=== PATIENT | male | born 1940 | race Caucasian/White ===

== ENCOUNTER 2016-09-19 08:55 | Day surgery (SDC) | payer OTHER ==
[~2016-09-19] VITALS: Ht 172.7 cm; Wt 98.9 kg
[~2016-09-19 08:55] MED LIST: ACTOS45 MG PO; ASPIRIN325 MG PO; CIPROFLOXA250 MG/5 M PO; CO Q-10100 MG PO; DAILY VALUE1 EACH PO; ELIQUIS5 MG PO; FUROSEMIDE40 MG PO; JANUVIA25 M1 PO; L-ARGININE500 MG PO; LIPITOR40 MG PO; LISINOPRIL10 MG PO; LISINOPRIL40 MG PO; MULTIVITAMIN1 EAC2 PO; PLAVIX75 MG PO; RANEXA500 MG PO
[2016-09-19 09:31] LABS: POINT-OF-CARE METER ID UU13113696; POINT-OF-CARE USER ID HMLCJM07
[2016-09-19 10:29] LABS: POINT-OF-CARE METER ID UU13113819
== END 2016-09-19 11:35 | disposition home or self-care (01) ==
LOC: CATH 08:55
PROVIDERS: Internal Medicine Cardiovascular Disease
PROC: 5A2204Z Restoration of Cardiac Rhythm, Single (ICD-10-PCS; principal; 2016-09-19)
DX: I48.92 Unspecified atrial flutter (principal); I25.10 Atherosclerotic heart disease of native coronary artery without angina pectoris; I11.0 Hypertensive heart disease with heart failure; I50.9 Heart failure, unspecified; E78.5 Hyperlipidemia, unspecified; E11.9 Type 2 diabetes mellitus without complications; Z98.61 Coronary angioplasty status; Z95.5 Presence of coronary angioplasty implant and graft; Z79.82 Long term (current) use of aspirin; Z87.891 Personal history of nicotine dependence; Z85.828 Personal history of other malignant neoplasm of skin
CPT/HCPCS: 82948; 93005

== ENCOUNTER 2016-09-21 12:31 | Inpatient (IN) | payer OTHER ==
[~2016-09-21] VITALS: Ht 172.7 cm; Wt 97.2 kg
[2016-09-21] MEDS ORDERED: LO-DOSE ASPIRIN81 M2 PO (13:44)
[2016-09-21 13:57] LABS: HEMATOCRIT 30.6 % (38.0-50.0); MCH 31.9 PG (29.0-34.0); MCV 96.5 FL (86-99); MEAN PLAT.VOLUME 9.7 uM^3 (9.0-12.4); NRBC (%) 0.4 /100 WBC (0-0); PLATELET COUNT 175 K/uL (156-360); RBC DIS.WIDTH-SD 50.8 % (39-53); RED BLOOD COUNT 3.17 M/uL (4.00-5.50); WHITE BLOOD COUNT 9.1 K/uL (4.1-10.2)
[2016-09-21 14:08] LABS: INTER. NORMALIZED RATIO 1.2; PROTHROMBIN TIME 12.7 (9.2-11.2); PTT 30.1 (25-32)
[2016-09-21 14:09] LABS: CHLORIDE 105 mEq/L (99-109); POTASSIUM 4.1 mEq/L (3.7-5.4); SODIUM 140 mEq/L (136-147)
[2016-09-21 14:11] LABS: GLUCOSE 126 mg/dL (70-99)
[2016-09-21 14:12] LABS: ANION GAP 13 MEQ/L (2-14)
[2016-09-21 14:15] LABS: GFR ESTIMATE (CALCULATED) 45 mL/min/
[2016-09-21 14:16] LABS: UREA NITROGEN (BUN) 35 mg/dL (9-23)
[2016-09-21 19:57] VITALS: BP 136/73
[2016-09-21 21:08] LABS: HEMATOCRIT 29.9 % (38.0-50.0); MCH 31.5 PG (29.0-34.0); MCHC 32.4 G/DL (30.0-36.0); MCV 97.1 FL (86-99); NRBC (%) 0.5 /100 WBC (0-0); PLATELET COUNT 186 K/uL (156-360); RBC DIS.WIDTH-CV 15.1 % (11.8-14.6); RBC DIS.WIDTH-SD 50.8 % (39-53); RED BLOOD COUNT 3.08 M/uL (4.00-5.50); WHITE BLOOD COUNT 10.1 K/uL (4.1-10.2)
[2016-09-21 21:14] LABS: POINT-OF-CARE METER ID UU13113725
[2016-09-22] VITALS (9 sets, daily range): BP systolic 101–171; BP diastolic 54–76
[2016-09-22 06:25] LABS: POINT-OF-CARE METER ID UU13113725
[2016-09-22 08:06] LABS: MCH 31.6 PG (29.0-34.0); MCHC 31.7 G/DL (30.0-36.0); MCV 99.7 FL (86-99); MEAN PLAT.VOLUME 9.9 uM^3 (9.0-12.4); NRBC (%) 0.3 /100 WBC (0-0); PLATELET COUNT 207 K/uL (156-360); RBC DIS.WIDTH-CV 15.2 % (11.8-14.6); RBC DIS.WIDTH-SD 53.1 % (39-53); RED BLOOD COUNT 3.01 M/uL (4.00-5.50); WHITE BLOOD COUNT 9.2 K/uL (4.1-10.2)
[2016-09-22 18:26] LABS: HEMATOCRIT 23.1 % (38.0-50.0); MCV 97.5 FL (86-99)
[2016-09-23] VITALS (14 sets, daily range): BP systolic 105–138; BP diastolic 55–72
[2016-09-23 03:13] LABS: HEMATOCRIT 24.7 % (38.0-50.0); MCV 96.1 FL (86-99)
[2016-09-23 03:27] LABS: CHLORIDE 109 mEq/L (99-109); POTASSIUM 3.7 mEq/L (3.7-5.4); SODIUM 139 mEq/L (136-147)
[2016-09-23 03:30] LABS: GLUCOSE 96 mg/dL (70-99)
[2016-09-23 03:31] LABS: ANION GAP 7 MEQ/L (2-14)
[2016-09-23 03:32] LABS: TOTAL BILIRUBIN 1.6 mg/dL (0.0-1.0)
[2016-09-23 03:33] LABS: ALKALINE PHOSPHATASE 62 IU/L (3-129); GFR ESTIMATE (CALCULATED) > 59 mL/min/
[2016-09-23 03:34] LABS: UREA NITROGEN (BUN) 18 mg/dL (9-23)
[2016-09-23 12:28] LABS: HEMATOCRIT 25.8 % (38.0-50.0); MCV 96.3 FL (86-99)
[2016-09-23 18:32] LABS: HEMATOCRIT 33.4 % (38.0-50.0); MCV 94.9 FL (86-99)
[2016-09-24 00:07] VITALS: BP 114/56
[2016-09-24 04:48] VITALS: BP 114/62
[2016-09-24 07:16] VITALS: BP 100/57
[2016-09-24 07:23] LABS: HEMATOCRIT 28.2 % (38.0-50.0); MCH 31.2 PG (29.0-34.0); MCHC 33.3 G/DL (30.0-36.0); MCV 93.7 FL (86-99); NRBC (%) 0.3 /100 WBC (0-0); RBC DIS.WIDTH-CV 15.9 % (11.8-14.6); RBC DIS.WIDTH-SD 52.2 % (39-53); RED BLOOD COUNT 3.01 M/uL (4.00-5.50)
[2016-09-24 07:29] LABS: WHITE BLOOD COUNT 6.2 K/uL (4.1-10.2)
[2016-09-24 08:45] LABS: EOSINOPHIL (%) 3.4 % (0-5); EOSINOPHIL COUNT 0.2 K/uL (0-0.3); IMMATURE GRANULOCYTE (%) 0.6 % (0.0-0.7); INSTRUMENT ABS NEUTROPHIL CT 4.9 K/uL; LYMPHOCYTE COUNT 0.5 K/uL (1.0-2.8); MONOCYTE (%) 8.1 % (3-12); MONOCYTE COUNT 0.5 K/uL (0-0.8); NEUTROPHIL (%) 79.1 % (45-76); NEUTROPHIL COUNT 4.9 K/uL (1.8-6.4)
[2016-09-24 08:58] LABS: PLATELET COUNT 130 K/uL (156-360)
== END 2016-09-24 10:42 | disposition home or self-care (01) | DRG 378 ==
LOC: EME 12:31 → 5EAST 13:15 → EDOF 13:15 → 5EAST 19:27
PROVIDERS: Emergency Medicine; Family Medicine; Specialist
DX: K55.21 Angiodysplasia of colon with hemorrhage (principal); K29.60 Other gastritis without bleeding; D12.3 Benign neoplasm of transverse colon; K57.30 Diverticulosis of large intestine without perforation or abscess without bleeding; I48.91 Unspecified atrial fibrillation; I48.92 Unspecified atrial flutter; D50.0 Iron deficiency anemia secondary to blood loss (chronic); I25.10 Atherosclerotic heart disease of native coronary artery without angina pectoris; I10 Essential (primary) hypertension; E78.5 Hyperlipidemia, unspecified; I44.1 Atrioventricular block, second degree; E11.65 Type 2 diabetes mellitus with hyperglycemia; M10.9 Gout, unspecified; M16.0 Bilateral primary osteoarthritis of hip; R33.9 Retention of urine, unspecified; E66.9 Obesity, unspecified; Z68.32 Body mass index [BMI] 32.0-32.9, adult; Z79.01 Long term (current) use of anticoagulants; Z95.5 Presence of coronary angioplasty implant and graft; Z90.5 Acquired absence of kidney; Z79.02 Long term (current) use of antithrombotics/antiplatelets; Z79.82 Long term (current) use of aspirin; Z79.84 Long term (current) use of oral hypoglycemic drugs; Z87.891 Personal history of nicotine dependence
CPT/HCPCS: 36415; 80048; 80053; 82948; 85014; 85018; 85025; 85027; 85610; 85730; 86900; 86901; 86920; 93005; 99281; 99285; C9113; J1940; J7030; P9016; P9040

== ENCOUNTER → 2016-10-19 | Outpatient (CLI) | payer OTHER ==
[~2016-10-19] MED LIST changes: +LO-DOSE ASPIRIN81 M2 PO
[2016-10-19 15:06] LABS: INTER. NORMALIZED RATIO 1.1; PROTHROMBIN TIME 11.5 (9.2-11.2); PTT 27.1 (25-32)
[2016-10-19 15:09] LABS: HEMATOCRIT 39.3 % (38.0-50.0); MCH 29.5 PG (29.0-34.0); MCHC 31.6 G/DL (30.0-36.0); MCV 93.3 FL (86-99); MEAN PLAT.VOLUME 9.9 uM^3 (9.0-12.4); PLATELET COUNT 199 K/uL (156-360); RBC DIS.WIDTH-CV 14.4 % (11.8-14.6); RBC DIS.WIDTH-SD 48.8 % (39-53); RED BLOOD COUNT 4.21 M/uL (4.00-5.50); WHITE BLOOD COUNT 7.7 K/uL (4.1-10.2)
[2016-10-19 17:26] LABS: TYPE OF FLUID PLEURAL
[2016-10-19 17:50] LABS: BODY FLUID RBC'S 1000 /MM^3 (0-100); BODY FLUID WBC'S 418 /MM^3 (0-500)
[2016-10-19 18:00] LABS: BODY FLUID LDH 126 IU/L; BODY FLUID PROTEIN 3.7 G/DL
[2016-10-19 18:42] LABS: BODY FLUID EOSINOPHILS 0 % (0-25); MONONUCLEAR WBC'S 93 %; POLYNUCLEAR WBC'S 7 % (0-25)
== END | disposition home or self-care (01) ==
LOC: AMB 14:21
PROVIDERS: Internal Medicine Pulmonary Disease
PROC: 0W9B3ZZ Drainage of Left Pleural Cavity, Percutaneous Approach (ICD-10-PCS; principal; 2016-10-19)
DX: J90 Pleural effusion, not elsewhere classified (principal); R07.9 Chest pain, unspecified; I51.7 Cardiomegaly
CPT/HCPCS: 71010; 82945; 83615 91; 84157; 85027; 85610; 85730; 87070; 87075; 87116; 87205; 87206; 88108; 88305; 89051

== ENCOUNTER → 2016-10-27 | Outpatient (CLI) | payer OTHER | END | disposition home or self-care (01) | LOC: AMB 14:32 | DX: J90 Pleural effusion, not elsewhere classified (principal); J44.9 Chronic obstructive pulmonary disease, unspecified; Z87.891 Personal history of nicotine dependence | CPT/HCPCS: 71010 ==

== ENCOUNTER 2016-12-21 22:09 | Inpatient (IN) | payer OTHER ==
[~2016-12-21] VITALS: Ht 172.7 cm; Wt 99.9 kg
[2016-12-22 07:08] VITALS: BP 124/63
[2016-12-22 07:09] LABS: INTER. NORMALIZED RATIO 1.2; PROTHROMBIN TIME 12.8 SEC (10.2-12.9)
[2016-12-22 07:41] LABS: ALKALINE PHOSPHATASE 92 IU/L (3-129); ANION GAP 8 MEQ/L (2-14); CHLORIDE 103 MEQ/L (99-109); GFR ESTIMATE (CALCULATED) 52 mL/min/; GLUCOSE 109 mg/dL (70-99); POTASSIUM 4.4 MEQ/L (3.7-5.4); SAMPLE HEMOLYSIS CHECK 0; SAMPLE ICTERIC CHECK 0; SAMPLE LIPEMIA CHECK 0; SODIUM 139 MEQ/L (136-147); TOTAL BILIRUBIN 0.7 MG/DL (0.0-1.0); UREA NITROGEN (BUN) 21 mg/dL (9-23)
[2016-12-22 10:11] LABS: TYPE OF FLUID PLEURAL
[2016-12-22 10:39] LABS: BODY FLUID RBC'S 5000 /MM^3 (0-100); BODY FLUID WBC'S 415 /MM^3 (0-500)
[2016-12-22 11:00] LABS: BODY FLUID EOSINOPHILS 0 % (0-25); MONONUCLEAR WBC'S 97 %; POLYNUCLEAR WBC'S 3 % (0-25)
[2016-12-22 12:32] LABS: POINT-OF-CARE METER ID UU13113675; POINT-OF-CARE USER ID ADMKMM76
[2016-12-22 14:07] LABS: BASE EXCESS 0 mEq/L (-3 to +3); BICARBONATE 23.5 mEq/L (22-26); CARBOXY HGB 1.5 % (0-5); METHEMOGLOBIN 1.4 % (0-1.5); PCO2 33 mm Hg (35-45); PO2 130 mm Hg (80-100); pH 7.46 (7.35-7.45)
[2016-12-22 17:00] VITALS: BP 113/63
[2016-12-22 17:52] LABS: METH RESISTANT S AUREUS PCR NEGATIVE (NEGATIVE)
[2016-12-22 17:57] LABS: SPECIMEN PROCESSING CONTROL PASS
[2016-12-22 17:58] LABS: PROBE CHECK PASS
[2016-12-22 19:05] LABS: DEVICE 840; MECHANICAL RATE 14 resp/min; MODE A/C
[2016-12-22 19:06] LABS: FI02 100 %; PEEP 5 CM/H20
[2016-12-22 19:08] LABS: SITE RR ALINE
[2016-12-22 19:09] LABS: TIDAL VOLUME 600 ML
[2016-12-22 20:00] VITALS: BP 104/61
[2016-12-22 23:49] LABS: POINT-OF-CARE METER ID UU14174217
[2016-12-23] VITALS (12 sets, daily range): BP systolic 99–132; BP diastolic 52–68
[2016-12-23 05:22] LABS: POINT-OF-CARE METER ID UU14208751
[2016-12-23 06:12] LABS: HEMATOCRIT 32.8 % (38.0-50.0); MCH 28.6 PG (29.0-34.0); MCHC 32.3 G/DL (30.0-36.0); MCV 88.4 FL (86-99); MEAN PLAT.VOLUME 10.3 uM^3 (9.0-12.4); PLATELET COUNT 168 K/uL (156-360); RBC DIS.WIDTH-CV 17.8 % (11.8-14.6); RBC DIS.WIDTH-SD 55.9 % (39-53); RED BLOOD COUNT 3.71 M/uL (4.00-5.50); WHITE BLOOD COUNT 17.9 K/uL (4.1-10.2)
[2016-12-23 06:59] LABS: ANION GAP 10 MEQ/L (2-14); CHLORIDE 103 MEQ/L (99-109); GFR ESTIMATE (CALCULATED) 48 mL/min/; GLUCOSE 113 mg/dL (70-99); POTASSIUM 4.7 MEQ/L (3.7-5.4); SAMPLE HEMOLYSIS CHECK 0; SAMPLE ICTERIC CHECK 0; SAMPLE LIPEMIA CHECK 0; SODIUM 136 MEQ/L (136-147); UREA NITROGEN (BUN) 23 mg/dL (9-23)
[2016-12-23 13:22] LABS: POINT-OF-CARE METER ID UU14208751
[2016-12-23 18:33] LABS: POINT-OF-CARE METER ID UU14208751
[2016-12-23 21:35] LABS: POINT-OF-CARE METER ID UU14208751
[2016-12-24] VITALS (19 sets, daily range): BP systolic 113–132; BP diastolic 57–80
[2016-12-24 06:23] LABS: ANION GAP 8 MEQ/L (2-14); CHLORIDE 101 MEQ/L (99-109); GFR ESTIMATE (CALCULATED) 57 mL/min/; GLUCOSE 119 mg/dL (70-99); POTASSIUM 4.2 MEQ/L (3.7-5.4); SAMPLE HEMOLYSIS CHECK 0; SAMPLE ICTERIC CHECK 0; SAMPLE LIPEMIA CHECK 0; SODIUM 135 MEQ/L (136-147); UREA NITROGEN (BUN) 22 mg/dL (9-23)
[2016-12-24 06:45] LABS: HEMATOCRIT 31.2 % (38.0-50.0); MCH 27.3 PG (29.0-34.0); MCHC 30.8 G/DL (30.0-36.0); MCV 88.6 FL (86-99); MEAN PLAT.VOLUME 9.3 uM^3 (9.0-12.4); PLAT.SUFFICIENCY DECREASED; RBC DIS.WIDTH-CV 17.5 % (11.8-14.6); RBC DIS.WIDTH-SD 56.3 % (39-53); RED BLOOD COUNT 3.52 M/uL (4.00-5.50); WHITE BLOOD COUNT 11.6 K/uL (4.1-10.2)
[2016-12-24 06:46] LABS: PLATELET COUNT 113 K/uL (156-360)
[2016-12-24 11:39] LABS: POINT-OF-CARE METER ID UU14162636
[2016-12-24 16:28] LABS: POINT-OF-CARE METER ID UU14162636
[2016-12-24 21:39] LABS: POINT-OF-CARE METER ID UU14162636
[2016-12-25] VITALS (12 sets, daily range): BP systolic 84–124; BP diastolic 41–81
[2016-12-25 05:54] LABS: HEMATOCRIT 30.7 % (38.0-50.0); MCH 28.1 PG (29.0-34.0); MCHC 31.9 G/DL (30.0-36.0); MEAN PLAT.VOLUME 10.3 uM^3 (9.0-12.4); PLATELET COUNT 127 K/uL (156-360); RBC DIS.WIDTH-CV 17.1 % (11.8-14.6); RBC DIS.WIDTH-SD 54.7 % (39-53); RED BLOOD COUNT 3.49 M/uL (4.00-5.50); WHITE BLOOD COUNT 8.7 K/uL (4.1-10.2)
[2016-12-25 08:25] LABS: POINT-OF-CARE METER ID UU13113731
[2016-12-25 11:53] LABS: POINT-OF-CARE METER ID UU13113731
[2016-12-25 18:01] LABS: POINT-OF-CARE METER ID UU13113731
[2016-12-25 21:59] LABS: POINT-OF-CARE METER ID UU14162636
[2016-12-26] VITALS (11 sets, daily range): BP systolic 83–119; BP diastolic 45–66
[2016-12-26 05:50] LABS: HEMATOCRIT 26.7 % (38.0-50.0); MCH 27.3 PG (29.0-34.0); MCHC 31.5 G/DL (30.0-36.0); MCV 86.7 FL (86-99); MEAN PLAT.VOLUME 10.3 uM^3 (9.0-12.4); PLATELET COUNT 125 K/uL (156-360); RBC DIS.WIDTH-CV 17.2 % (11.8-14.6); RBC DIS.WIDTH-SD 54.2 % (39-53); RED BLOOD COUNT 3.08 M/uL (4.00-5.50); WHITE BLOOD COUNT 6.5 K/uL (4.1-10.2)
[2016-12-26 08:16] LABS: POINT-OF-CARE METER ID UU14208751
[2016-12-26 11:52] LABS: POINT-OF-CARE METER ID UU13113731
[2016-12-26 21:03] LABS: POINT-OF-CARE METER ID UU14208751
[2016-12-27] VITALS: BP 107/58
[2016-12-27 04:00] VITALS: BP 92/42
[2016-12-27 07:00] VITALS: BP 109/62
[2016-12-27 08:00] LABS: POINT-OF-CARE METER ID UU14208751
[2016-12-27 11:00] VITALS: BP 105/60
[2016-12-27 12:05] LABS: POINT-OF-CARE METER ID UU14208751
[2016-12-27 15:00] VITALS: BP 107/51
[2016-12-27 17:18] LABS: POINT-OF-CARE METER ID UU14208751
[2016-12-27 19:00] VITALS: BP 104/61
[2016-12-27] MEDS ORDERED: HYDROCODON-ACE1 EAC7 PO (19:18)
[2016-12-27] MEDS ORDERED: Colchicine,Colcrys PO (19:18)
[2016-12-27] MEDS ORDERED: MUCINEX600 MG PO (19:18)
[2016-12-27] MEDS ORDERED: DOCUSATE SODIU100 MG PO (19:18)
== END 2016-12-27 20:55 | disposition home or self-care (01) | DRG 167 ==
LOC: ENRESERV 22:09 → 4WEST 12-22 06:32 → 2SOUTH 12-22 06:32 → ENRESERV 12-22 09:54 → 2SOUTH 12-22 10:22 → ENRESERV 12-22 14:25 → 4WEST 12-22 14:32
PROVIDERS: Surgery; Thoracic Surgery (Cardiothoracic Vascular Surgery)
DX: J90 Pleural effusion, not elsewhere classified (principal); J94.1 Fibrothorax; J94.8 Other specified pleural conditions; J98.4 Other disorders of lung; J98.11 Atelectasis; I13.0 Hypertensive heart and chronic kidney disease with heart failure and stage 1 through stage 4 chronic kidney disease, or unspecified chronic kidney disease; I50.32 Chronic diastolic (congestive) heart failure; E11.22 Type 2 diabetes mellitus with diabetic chronic kidney disease; N18.9 Chronic kidney disease, unspecified; E78.5 Hyperlipidemia, unspecified; E11.9 Type 2 diabetes mellitus without complications; I48.92 Unspecified atrial flutter; I25.10 Atherosclerotic heart disease of native coronary artery without angina pectoris; I48.91 Unspecified atrial fibrillation; Z95.5 Presence of coronary angioplasty implant and graft; I25.2 Old myocardial infarction; Z88.2 Allergy status to sulfonamides; Z79.82 Long term (current) use of aspirin; Z87.891 Personal history of nicotine dependence; Z90.5 Acquired absence of kidney
CPT/HCPCS: 36600; 71010; 71020; 80048; 80053; 82803; 82948; 85027; 85610; 86850; 86900; 86901; 87070; 87075; 87102; 87116; 87205; 87206; 87641; 88108; 88305; 89051; 94003; 94010; 94640; 94640 76; 94667; 94668; 94799; 97530 GO; 99202; J0330; J0690; J1170; J1644; J1815; J1885; J2250; J2370; J2405; J2704; J3010; J7050; J7120; S0028

== ENCOUNTER → 2017-03-29 | Outpatient (CLI) | payer OTHER ==
[~2017-03-29] MED LIST changes: +Colchicine,Colcrys PO; +DOCUSATE SODIU100 MG PO; +HYDROCODON-ACE1 EAC7 PO; +MUCINEX600 MG PO
== END | disposition home or self-care (01) ==
LOC: NUC 09:27
DX: M17.0 Bilateral primary osteoarthritis of knee (principal); M19.072 Primary osteoarthritis, left ankle and foot; M19.071 Primary osteoarthritis, right ankle and foot; Z87.81 Personal history of (healed) traumatic fracture
CPT/HCPCS: 78306; A9503

== ENCOUNTER 2017-04-17 11:35 | Inpatient (IN) | payer OTHER ==
[~2017-04-17] VITALS: Ht 172.7 cm; Wt 89.0 kg
[~2017-04-17 11:35] MED LIST changes: +CO Q-1050 MG PO
[2017-04-17 12:42] LABS: EOSINOPHIL (%) 1.1 % (0-5); EOSINOPHIL COUNT 0.1 K/uL (0-0.3); HEMATOCRIT 22.8 % (38.0-50.0); IMMATURE GRANULOCYTE (%) 0.4 % (0.0-0.7); INSTRUMENT ABS NEUTROPHIL CT 6.8 K/uL; LYMPHOCYTE COUNT 0.5 K/uL (1.0-2.8); MCH 27.8 PG (29.0-34.0); MCHC 30.7 G/DL (30.0-36.0); MCV 90.5 FL (86-99); MEAN PLAT.VOLUME 10.7 uM^3 (9.0-12.4); MONOCYTE (%) 6.5 % (3-12); MONOCYTE COUNT 0.5 K/uL (0-0.8); NEUTROPHIL (%) 85.3 % (45-76); NEUTROPHIL COUNT 6.8 K/uL (1.8-6.4); NRBC (%) 0.4 /100 WBC (0-0); PLATELET COUNT 166 K/uL (156-360); RBC DIS.WIDTH-CV 18.6 % (11.8-14.6); RBC DIS.WIDTH-SD 59.7 % (39-53); RED BLOOD COUNT 2.52 M/uL (4.00-5.50)
[2017-04-17 12:47] LABS: INTER. NORMALIZED RATIO 2.3; PROTHROMBIN TIME 26.1 SEC (10.2-12.9)
[2017-04-17 12:50] LABS: PTT 31.1 SEC (25-37)
[2017-04-17 12:52] LABS: CHLORIDE 106 mEq/L (99-109); POTASSIUM 3.8 mEq/L (3.7-5.4); SODIUM 140 mEq/L (136-147)
[2017-04-17 12:54] LABS: GLUCOSE 156 mg/dL (70-99)
[2017-04-17 12:55] LABS: ANION GAP 15 MEQ/L (2-14)
[2017-04-17 12:56] LABS: TOTAL BILIRUBIN 0.7 mg/dL (0.0-1.0)
[2017-04-17 12:57] LABS: ALKALINE PHOSPHATASE 89 IU/L (3-129)
[2017-04-17 12:58] LABS: GFR ESTIMATE (CALCULATED) > 59 mL/min/ (58.99-99999)
[2017-04-17 12:59] LABS: UREA NITROGEN (BUN) 40 mg/dL (9-23)
[2017-04-17 14:52] LABS: TROP-I INTERPRETATION NEGATIVE; TROPONIN-I 0.18 ng/mL (0.0-0.30)
[2017-04-17] MEDS ORDERED: CLOPIDOGREL75 MG PO (15:11)
[2017-04-17] MEDS ORDERED: ELIQUIS5 MG PO (15:11)
[2017-04-17 21:32] LABS: POINT-OF-CARE METER ID UU13113774
[2017-04-17 21:35] VITALS: BP 122/59
[2017-04-18] VITALS (15 sets, daily range): BP systolic 109–141; BP diastolic 51–82
[2017-04-18 06:11] LABS: POINT-OF-CARE METER ID UU13113774
[2017-04-18 09:06] LABS: INTER. NORMALIZED RATIO 1.5; PROTHROMBIN TIME 17.3 SEC (10.2-12.9)
[2017-04-18 09:14] LABS: HEMATOCRIT 21.8 % (38.0-50.0); MCHC 31.2 G/DL (30.0-36.0); MCV 89.7 FL (86-99); MEAN PLAT.VOLUME 10.1 uM^3 (9.0-12.4); PLATELET COUNT 141 K/uL (156-360); RBC DIS.WIDTH-CV 17.2 % (11.8-14.6); RBC DIS.WIDTH-SD 54.8 % (39-53); RED BLOOD COUNT 2.43 M/uL (4.00-5.50); WHITE BLOOD COUNT 7.1 K/uL (4.1-10.2)
[2017-04-18 09:25] LABS: ANION GAP 10 MEQ/L (2-14); CHLORIDE 107 MEQ/L (99-109); GFR ESTIMATE (CALCULATED) > 59 mL/min/ (58.99-99999); GLUCOSE 126 mg/dL (70-99); POTASSIUM 3.7 MEQ/L (3.7-5.4); SAMPLE HEMOLYSIS CHECK 0; SAMPLE ICTERIC CHECK 0; SAMPLE LIPEMIA CHECK 0; SODIUM 140 MEQ/L (136-147); UREA NITROGEN (BUN) 32 mg/dL (9-23)
[2017-04-18 12:29] LABS: POINT-OF-CARE METER ID UU13113774
[2017-04-18 15:19] LABS: POINT-OF-CARE METER ID UU14107333
[2017-04-18 17:51] LABS: HEMATOCRIT 27.9 % (38.0-50.0); MCV 87.5 FL (86-99)
[2017-04-18 18:14] LABS: POINT-OF-CARE METER ID UU13113774
[2017-04-18 22:48] LABS: HEMATOCRIT 28.9 % (38.0-50.0); MCV 88.4 FL (86-99)
== END 2017-04-18 22:53 | disposition short-term general hospital (02) | DRG 378 ==
LOC: EME 11:35 → EDOF 16:43 → 5EAST 16:43 → ENRESERV 16:45 → 5EAST 20:55
PROVIDERS: Family Medicine; Internal Medicine Gastroenterology; Physician Assistant
PROC: 30233N1 Transfusion of Nonautologous Red Blood Cells into Peripheral Vein, Percutaneous Approach (ICD-10-PCS; 2017-04-17)
PROC: 30233K1 Transfusion of Nonautologous Frozen Plasma into Peripheral Vein, Percutaneous Approach (ICD-10-PCS; 2017-04-17)
PROC: 0DJD8ZZ Inspection of Lower Intestinal Tract, Via Natural or Artificial Opening Endoscopic (ICD-10-PCS; principal; 2017-04-18)
PROC: 0DJ08ZZ Inspection of Upper Intestinal Tract, Via Natural or Artificial Opening Endoscopic (ICD-10-PCS; principal; 2017-04-18)
DX: K92.1 Melena (principal); D68.32 Hemorrhagic disorder due to extrinsic circulating anticoagulants; T45.525A Adverse effect of antithrombotic drugs, initial encounter; T39.015A Adverse effect of aspirin, initial encounter; D62 Acute posthemorrhagic anemia; K57.30 Diverticulosis of large intestine without perforation or abscess without bleeding; K25.9 Gastric ulcer, unspecified as acute or chronic, without hemorrhage or perforation; K29.70 Gastritis, unspecified, without bleeding; K56.41 Fecal impaction; I13.0 Hypertensive heart and chronic kidney disease with heart failure and stage 1 through stage 4 chronic kidney disease, or unspecified chronic kidney disease; I50.9 Heart failure, unspecified; E11.22 Type 2 diabetes mellitus with diabetic chronic kidney disease; N18.9 Chronic kidney disease, unspecified; I25.10 Atherosclerotic heart disease of native coronary artery without angina pectoris; I48.91 Unspecified atrial fibrillation; I48.92 Unspecified atrial flutter; C61 Malignant neoplasm of prostate; K44.9 Diaphragmatic hernia without obstruction or gangrene; M10.9 Gout, unspecified; E78.5 Hyperlipidemia, unspecified; M19.90 Unspecified osteoarthritis, unspecified site; E66.9 Obesity, unspecified; Z79.01 Long term (current) use of anticoagulants; Z79.82 Long term (current) use of aspirin; Z82.49 Family history of ischemic heart disease and other diseases of the circulatory system; Z83.3 Family history of diabetes mellitus; Z86.73 Personal history of transient ischemic attack (TIA), and cerebral infarction without residual deficits; Z87.11 Personal history of peptic ulcer disease; Z90.5 Acquired absence of kidney; Z95.5 Presence of coronary angioplasty implant and graft; Z87.891 Personal history of nicotine dependence
CPT/HCPCS: 80053; 80069; 82948; 84484; 85014; 85018; 85025; 85027; 85610; 85730; 86850; 86900; 86901; 86920; 93005; 99281; 99285; C9113; J1815; J3430; J7050; P9016; P9017

== ENCOUNTER 2017-07-06 22:00 | Inpatient (IN) | payer OTHER ==
[~2017-07-06] VITALS: Ht 172.7 cm; Wt 88.5 kg
[~2017-07-06 22:00] MED LIST changes: +CALCIUM 500 +1 EAC2 PO; +CLOPIDOGREL75 MG PO; +[UNRECOGNIZED DRUG - REMARK]
[2017-07-06 23:03] LABS: ALBUMIN 3.3 g/dL (3.2-4.8); CHLORIDE 100 mEq/L (99-109); POTASSIUM 4.3 mEq/L (3.7-5.4); SODIUM 136 mEq/L (136-147)
[2017-07-06 23:05] LABS: GLUCOSE 151 mg/dL (70-99)
[2017-07-06 23:06] LABS: BASOPHIL (%) 0.1 % (0-1); EOSINOPHIL (%) 0.1 % (0-5); HEMATOCRIT 13.6 % (38.0-50.0); IMMATURE GRANULOCYTE (%) 1.2 % (0.0-0.7); LYMPHOCYTE (%) 4.8 % (15-42); LYMPHOCYTE COUNT 0.5 K/uL (1.0-2.8); MCH 28.8 PG (29.0-34.0); MCHC 30.9 G/DL (30.0-36.0); MCV 93.2 FL (86-99); MONOCYTE (%) 6.1 % (3-12); MONOCYTE COUNT 0.6 K/uL (0-0.8); NEUTROPHIL (%) 87.7 % (45-76); NEUTROPHIL COUNT 8.7 K/uL (1.8-6.4); NRBC (%) 0.8 /100 WBC (0-0); RBC DIS.WIDTH-CV 22.1 % (11.8-14.6); RBC DIS.WIDTH-SD 70.5 % (39-53); TOTAL PROTEIN 5.3 g/dL (6.4-8.3); WHITE BLOOD COUNT 9.9 K/uL (4.1-10.2)
[2017-07-06 23:07] LABS: HEMOGLOBIN 4.2 G/DL (12.5-16.6); PLATELET COUNT 208 K/uL (156-360); RED BLOOD COUNT 1.46 M/uL (4.00-5.50); TOTAL BILIRUBIN 0.6 mg/dL (0.0-1.0)
[2017-07-06 23:09] LABS: ALKALINE PHOSPHATASE 85 IU/L (3-129); CREATININE 1.5 mg/dL (0.6-1.3); GFR ESTIMATE (CALCULATED) 48 mL/min/ (58.99-99999)
[2017-07-06 23:10] LABS: UREA NITROGEN (BUN) 62 mg/dL (9-23)
[2017-07-06 23:11] LABS: AST (GOT) 37 IU/L (2-34)
[2017-07-06 23:12] LABS: ALT (GPT) 26 IU/L (3-49); LIPASE 37 U/L (1.0-51.0)
[2017-07-06 23:15] LABS: TROP-I INTERPRETATION INDETERMINATE
[2017-07-07] VITALS (29 sets, daily range): BP systolic 88–124; BP diastolic 44–78
[2017-07-07 00:02] LABS: APPEARANCE CLEAR ((CLEAR)); BILIRUBIN NEGATIVE; BLOOD NEGATIVE; COLOR YELLOW ((YELLOW)); GLUCOSE (STRIP) NEGATIVE; KETONES NEGATIVE; LEUKOCYTES NEGATIVE; NITRITE NEGATIVE; PROTEIN (STRIP) NEGATIVE; SPECIFIC GRAVITY 1.016 (1.000-1.030); UCUL ADDED? NO; UROBILINOGEN 0.2 MG/DL (0.2-1.0)
[2017-07-07] MEDS ORDERED: ALLOPURINOL300 MG PO (01:10)
[2017-07-07] MEDS ORDERED: NITROSTAT0.4 MG SL (01:11)
[2017-07-07] MEDS ORDERED: COLCRYS0.6 MG PO (01:11)
[2017-07-07] MEDS ORDERED: RANEXA500 MG PO (01:11)
[2017-07-07 08:00] LABS: INTER. NORMALIZED RATIO 1.3
[2017-07-07 08:03] LABS: HEMATOCRIT 16.9 % (38.0-50.0); MCH 28.2 PG (29.0-34.0); MCHC 31.4 G/DL (30.0-36.0); MCV 89.9 FL (86-99); NRBC (%) 1.1 /100 WBC (0-0); PLATELET COUNT 164 K/uL (156-360); RBC DIS.WIDTH-CV 18.9 % (11.8-14.6); RBC DIS.WIDTH-SD 54.5 % (39-53); WHITE BLOOD COUNT 9.1 K/uL (4.1-10.2)
[2017-07-07 08:04] LABS: HEMOGLOBIN 5.3 G/DL (12.5-16.6); RED BLOOD COUNT 1.88 M/uL (4.00-5.50)
[2017-07-07 08:18] LABS: ALBUMIN 2.9 G/DL (3.2-4.8); CHLORIDE 99 MEQ/L (99-109); CREATININE 1.6 MG/DL (0.6-1.3); GFR ESTIMATE (CALCULATED) 45 mL/min/ (58.99-99999); GLUCOSE 133 mg/dL (70-99); PHOSPHORUS 4.6 mg/dL (2.5-4.9); POTASSIUM 4.4 MEQ/L (3.7-5.4); SODIUM 135 MEQ/L (136-147); UREA NITROGEN (BUN) 63 mg/dL (9-23)
[2017-07-07 14:37] LABS: HEMATOCRIT 21.9 % (38.0-50.0); HEMOGLOBIN 7.2 G/DL (12.5-16.6); MCV 90.1 FL (86-99)
[2017-07-07 14:40] LABS: HEMATOCRIT 21.9 % (38.0-50.0); HEMOGLOBIN 7.2 G/DL (12.5-16.6); MCV 90.1 FL (86-99)
[2017-07-07 23:50] LABS: HEMATOCRIT 23.5 % (38.0-50.0); HEMOGLOBIN 8.1 G/DL (12.5-16.6); MCV 87.7 FL (86-99)
[2017-07-08] VITALS (12 sets, daily range): BP systolic 88–117; BP diastolic 52–67
[2017-07-08 05:39] LABS: HEMATOCRIT 23.8 % (38.0-50.0); HEMOGLOBIN 7.8 G/DL (12.5-16.6); MCH 29.1 PG (29.0-34.0); MCHC 32.8 G/DL (30.0-36.0); MCV 88.8 FL (86-99); PLATELET COUNT 136 K/uL (156-360); RBC DIS.WIDTH-CV 16.3 % (11.8-14.6); RBC DIS.WIDTH-SD 49.2 % (39-53); WHITE BLOOD COUNT 8.3 K/uL (4.1-10.2)
[2017-07-08 05:44] LABS: RED BLOOD COUNT 2.68 M/uL (4.00-5.50)
[2017-07-08 06:05] LABS: ALBUMIN 2.9 G/DL (3.2-4.8); CHLORIDE 105 MEQ/L (99-109); CREATININE 1.2 MG/DL (0.6-1.3); GFR ESTIMATE (CALCULATED) > 59 mL/min/ (58.99-99999); GLUCOSE 101 mg/dL (70-99); PHOSPHORUS 2.9 mg/dL (2.5-4.9); POTASSIUM 4.1 MEQ/L (3.7-5.4); SODIUM 137 MEQ/L (136-147); UREA NITROGEN (BUN) 64 mg/dL (9-23)
[2017-07-08 18:15] LABS: HEMATOCRIT 26.7 % (38.0-50.0); HEMOGLOBIN 8.9 G/DL (12.5-16.6); MCV 89.9 FL (86-99)
[2017-07-09] VITALS (13 sets, daily range): BP systolic 90–124; BP diastolic 49–65
[2017-07-09 01:45] LABS: HEMATOCRIT 23.3 % (38.0-50.0); HEMOGLOBIN 7.9 G/DL (12.5-16.6); MCV 88.3 FL (86-99)
[2017-07-09 17:13] LABS: BASOPHIL (%) 0.1 % (0-1); EOSINOPHIL (%) 1.5 % (0-5); EOSINOPHIL COUNT 0.1 K/uL (0-0.3); HEMATOCRIT 33.7 % (38.0-50.0); IMMATURE GRANULOCYTE (%) 0.7 % (0.0-0.7); LYMPHOCYTE COUNT 0.4 K/uL (1.0-2.8); MCH 30.3 PG (29.0-34.0); MCHC 33.5 G/DL (30.0-36.0); MCV 90.3 FL (86-99); MONOCYTE (%) 7.3 % (3-12); MONOCYTE COUNT 0.6 K/uL (0-0.8); NEUTROPHIL (%) 86.4 % (45-76); NEUTROPHIL COUNT 7.6 K/uL (1.8-6.4); NRBC (%) 1.5 /100 WBC (0-0); PLATELET COUNT 125 K/uL (156-360); RBC DIS.WIDTH-CV 15.9 % (11.8-14.6); RBC DIS.WIDTH-SD 49.4 % (39-53); WHITE BLOOD COUNT 8.8 K/uL (4.1-10.2)
[2017-07-09 17:39] LABS: HEMOGLOBIN 11.3 G/DL (12.5-16.6); RED BLOOD COUNT 3.73 M/uL (4.00-5.50)
[2017-07-10 00:02] VITALS: BP 107/63
[2017-07-10 00:49] LABS: BASOPHIL (%) 0.1 % (0-1); EOSINOPHIL (%) 1.5 % (0-5); EOSINOPHIL COUNT 0.1 K/uL (0-0.3); HEMATOCRIT 27.5 % (38.0-50.0); HEMOGLOBIN 9.4 G/DL (12.5-16.6); IMMATURE GRANULOCYTE (%) 0.5 % (0.0-0.7); LYMPHOCYTE (%) 5.3 % (15-42); LYMPHOCYTE COUNT 0.4 K/uL (1.0-2.8); MCH 30.2 PG (29.0-34.0); MCHC 33.5 G/DL (30.0-36.0); MCV 90.2 FL (86-99); MONOCYTE (%) 8.1 % (3-12); MONOCYTE COUNT 0.6 K/uL (0-0.8); NEUTROPHIL (%) 84.5 % (45-76); NEUTROPHIL COUNT 6.3 K/uL (1.8-6.4); NRBC (%) 0.7 /100 WBC (0-0); PLATELET COUNT 113 K/uL (156-360); RBC DIS.WIDTH-CV 15.3 % (11.8-14.6); RBC DIS.WIDTH-SD 47.8 % (39-53); RED BLOOD COUNT 3.05 M/uL (4.00-5.50); WHITE BLOOD COUNT 7.5 K/uL (4.1-10.2)
[2017-07-10 04:44] VITALS: BP 97/62
[2017-07-10 07:19] VITALS: BP 105/54
[2017-07-10 08:25] LABS: BASOPHIL (%) 0.3 % (0-1); EOSINOPHIL COUNT 0.1 K/uL (0-0.3); HEMATOCRIT 25.9 % (38.0-50.0); HEMOGLOBIN 8.4 G/DL (12.5-16.6); IMMATURE GRANULOCYTE (%) 0.6 % (0.0-0.7); LYMPHOCYTE (%) 4.6 % (15-42); LYMPHOCYTE COUNT 0.3 K/uL (1.0-2.8); MCH 29.8 PG (29.0-34.0); MCHC 32.4 G/DL (30.0-36.0); MCV 91.8 FL (86-99); MONOCYTE COUNT 0.5 K/uL (0-0.8); NEUTROPHIL (%) 84.5 % (45-76); NEUTROPHIL COUNT 5.6 K/uL (1.8-6.4); NRBC (%) 0.5 /100 WBC (0-0); PLATELET COUNT 97 K/uL (156-360); RBC DIS.WIDTH-CV 15.7 % (11.8-14.6); RBC DIS.WIDTH-SD 50.8 % (39-53); RED BLOOD COUNT 2.82 M/uL (4.00-5.50); WHITE BLOOD COUNT 6.6 K/uL (4.1-10.2)
[2017-07-10 09:00] LABS: CHLORIDE 106 MEQ/L (99-109); CREATININE 1.1 MG/DL (0.6-1.3); GFR ESTIMATE (CALCULATED) > 59 mL/min/ (58.99-99999); GLUCOSE 142 mg/dL (70-99); POTASSIUM 3.3 MEQ/L (3.7-5.4); SODIUM 140 MEQ/L (136-147); UREA NITROGEN (BUN) 42 mg/dL (9-23)
[2017-07-10 11:22] VITALS: BP 95/59
[2017-07-10 17:24] VITALS: BP 109/60
[2017-07-10 18:09] LABS: BASOPHIL (%) 0.1 % (0-1); EOSINOPHIL (%) 0.8 % (0-5); EOSINOPHIL COUNT 0.1 K/uL (0-0.3); HEMATOCRIT 28.7 % (38.0-50.0); HEMOGLOBIN 9.3 G/DL (12.5-16.6); IMMATURE GRANULOCYTE (%) 0.4 % (0.0-0.7); LYMPHOCYTE COUNT 0.2 K/uL (1.0-2.8); MCH 30.4 PG (29.0-34.0); MCHC 32.4 G/DL (30.0-36.0); MCV 93.8 FL (86-99); MONOCYTE (%) 5.9 % (3-12); MONOCYTE COUNT 0.4 K/uL (0-0.8); NEUTROPHIL (%) 89.8 % (45-76); NEUTROPHIL COUNT 6.6 K/uL (1.8-6.4); NRBC (%) 0.4 /100 WBC (0-0); PLATELET COUNT 108 K/uL (156-360); RBC DIS.WIDTH-CV 16.2 % (11.8-14.6); RBC DIS.WIDTH-SD 50.9 % (39-53); RED BLOOD COUNT 3.06 M/uL (4.00-5.50); WHITE BLOOD COUNT 7.3 K/uL (4.1-10.2)
[2017-07-10 20:00] VITALS: BP 104/63
== END 2017-07-10 20:03 | disposition short-term general hospital (02) | DRG 378 ==
LOC: EME 22:00 → 4EAST 23:55 → EDOF 23:55 → ENRESERV 07-07 00:35 → 4EAST 07-07 02:04
PROVIDERS: Emergency Medicine; Family Medicine; Internal Medicine Gastroenterology; Specialist
DX: K92.2 Gastrointestinal hemorrhage, unspecified (principal); D64.9 Anemia, unspecified; I48.1 Persistent atrial fibrillation; E78.5 Hyperlipidemia, unspecified; C61 Malignant neoplasm of prostate; I25.10 Atherosclerotic heart disease of native coronary artery without angina pectoris; Z92.3 Personal history of irradiation; K29.70 Gastritis, unspecified, without bleeding; Z87.891 Personal history of nicotine dependence; I13.0 Hypertensive heart and chronic kidney disease with heart failure and stage 1 through stage 4 chronic kidney disease, or unspecified chronic kidney disease; K44.9 Diaphragmatic hernia without obstruction or gangrene; M10.9 Gout, unspecified; Z79.82 Long term (current) use of aspirin; E11.9 Type 2 diabetes mellitus without complications; K64.8 Other hemorrhoids; Z95.1 Presence of aortocoronary bypass graft; Z95.5 Presence of coronary angioplasty implant and graft; Z90.49 Acquired absence of other specified parts of digestive tract; Z90.5 Acquired absence of kidney; E11.22 Type 2 diabetes mellitus with diabetic chronic kidney disease; I48.2 Chronic atrial fibrillation; I50.9 Heart failure, unspecified; N18.9 Chronic kidney disease, unspecified
CPT/HCPCS: 74176; 77336; 77385; 80048; 80053; 80069; 81003; 82948; 83690; 84484; 85014; 85018; 85025; 85025 91; 85027; 85610; 86850; 86900; 86901; 86920; 93005; 99281; 99285; C9113; J1940; P9016; P9040